=== PATIENT | male | born 1985 | race Caucasian/White ===

== ENCOUNTER 2018-03-05 19:14 | Emergency (ER) | payer MEDICAID, SELFPAY ==
[2018-03-05 19:16] VITALS: BP 124/81; PULSE 115; RESP 19; TEMP 37.2; O2SAT 97; BMI 16.7
--- NOTE | 2018-03-05 19:39 | CT_ITS ---
CT Abdomen And Pelvis W/O Contrast INDICATION: LUQ PAIN COMPARISON: None TECHNIQUE: Axial CT imaging of the abdomen and pelvis without contrast. Coronal and sagittal reformatted images. FINDINGS: Air-trapping is noted at the visualized lung bases, the diaphragm is low in position. The liver, gallbladder, spleen, adrenal glands, and pancreas demonstrate grossly unremarkable noncontrast CT appearance. The kidneys are without evidence of nephrolithiasis or hydronephrosis. The urinary bladder is decompressed, otherwise unremarkable. The bowel loops are nondistended. The appendix is not well seen. There is no evidence of free air or free fluid. The osseous structures are grossly unremarkable. CT/Abdomen/Pelvis without Cont IMPRESSION: No evidence of acute abdominal or pelvic pathology by noncontrast CT. at 2020 Reported and signed by: Rasheeda Ernst MD Electronically Signed: Rasheeda Ernst MD at 20:18 EDT Tel , Service support ,
[2018-03-05] MEDS: Ondansetron 4 MG/2 ML Vial IV (19:54)
[2018-03-05] MEDS: Ketorolac 30 MG/ML Syringe IV (19:54)
[2018-03-05] MEDS: 0.9% Normal Saline 1,000 ML 250 ML IV (19:54)
[2018-03-05 21:00] LABS: Bacteria 0 SEEN /hpf (None Seen); Mucous, Urine 0 SEEN /hpf (<or=2+); Red Blood Cells-Urine 0 SEEN /hpf (0-5); White Blood Cells 0 SEEN /hpf (0-5)
[2018-03-05 21:05] LABS: Color, Urine Yellow (Yellow); Glucose, Dipstick Normal (Normal); Ketone-Dipstick Negative (Negative); Leukocyte Esterase-Dipstick 25 /ul (Negative); Nitrite-Dipstick Negative (Negative); Occult Blood-Urine 25 /ul (Negative); Protein-Dipstick Negative (Negative); Specific Gravity, Urine 1.015 (1.002-1.030); Urine Bilirubin Dipstick Negative (Negative); Urine Clarity Sl. Cloudy (Clear); Urine Urobilinogen Normal (Normal); Urine pH 6.5 (5.0 - 8.0)
[2018-03-05 21:17] LABS: Squamous Epithelial Cells - UA 0-5 SEEN /hpf (0-5)
[2018-03-05 21:18] LABS: Amorphous Sediment 2+
--- NOTE | 2018-03-05 21:49 | ED.DCSUM_ITS ---
- ER Visit Summary Date of Service: 03/05/18 Chief Complaint: Left flank pain History of Present Illness: The patient is a 33 M with no primary care physician. He reports he has left flank pain that began abruptly at 9:00 this morning. Is a stabbing pain Zeta 10 at worst and 7 out of 10 currently. Is worsened by nothing relieved by nothing. He has had nausea without vomiting. No diarrhea. His last problem was today. He has had no melena hematochezia. No dysuria or frequency. No personal family history of kidney stones. Physical Examination: Vitals: Stable. Afebrile. General: Well-nourished and well-developed. Head: Normocephalic atraumatic. Neck: Supple, no lymphadenopathy. No JVD. Nontender. Cardiovascular: Regular rate and rhythm. No murmurs. Respiratory: No respiratory distress. Clear to auscultation bilaterally. Abdominal: Soft, nontender, nondistended, normal bowel sounds. No guarding, rebound, or peritoneal signs. Back: Nontender. Extremities: Nontender, no edema. Skin: Normal color, no rash. Neurologic: Alert and oriented ?3. Cranial nerves II through XII are intact. Normal strength and sensation. Psych: Normal affect. Test Results: UA shows occult blood. CT flank shows no acute disease. Emergency Department Course and Treatment: Patient was treated Toradol and Zofran IV. He is resting comfortably and would like to go home. Treatment Plan: She will be discharged with naproxen and [place]. Instructed to follow-up with Dr. Brunson in 1-2 days if not improving. Return to the emergency department for any worsening symptoms. Disposition: To home in improved and stable condition. Impression:. Left flank pain, uncertain cause. This note was generated with [employer] dictation software. It may contain incorrect words, spelling, and punctuation that were not noted in review of the chart prior to signing ED Disposition - Plan for ED Patient: Disposition: Home or Assisted Living Chief Complaint: Abd Pain Instructions: ED Flank Pain Uncertain Cause Prescriptions: Hydrocodone Bitart/Apap 5-325 [[place] 5MG-325MG] 1 tablet PO Q4H PRN PRN 2 Days # 10 tablet PRN Reason: Pain Naproxen [Naprosyn] 500 mg PO BID #14 tablet Referrals: Saud Brunson MD [Primary Care Provider] - 3-5 Days if not improving
[2018-03-05] MEDS: HYDROcodone Bitartrate/Apap 5/325 Tablet PO (21:59)
[2018-03-05 22:06] VITALS: BP 115/85; PULSE 75; RESP 12; O2SAT 100
== END 2018-03-05 22:06 | disposition home or self-care (01) ==
PROVIDERS: Emergency Provider Emergency Medicine; Family Provider Family Medicine; PCP Family Medicine
DX: R10.9 Unspecified abdominal pain (principal); Z72.0 Tobacco use
CPT/HCPCS: 74176; 81001; 96361; 96374; 96375; 99284; J7030; A4216; J2405

== ENCOUNTER 2018-11-17 00:50 | Emergency (ER) | payer MEDICAID, SELFPAY ==
[2018-11-17 00:51] VITALS: BP 119/81; PULSE 118; RESP 18; TEMP 36.8; O2SAT 99; BMI 17.1
--- NOTE | 2018-11-17 01:46 | RAD_ITS ---
HISTORY: FELLC/O POSTERIOR LT KNEE PAIN COMPARISON: None FINDINGS: # of images incl. paperwork: 5 XR Knee Complete 4 Views or More: Left SOFT TISSUES: Unremarkable. No radiopaque foreign body. BONES: No acute fracture or subluxation. No sclerotic or destructive changes observed. JOINTS: Preservation of the joint space. Articular surfaces are unremarkable. RAD/Knee 4 or More Views IMPRESSION: Negative. at 0224 Reported and signed by: Mateusz Madrid MD Electronically Signed: Mateusz Madrid, at 2:22 EST Tel , Service support ,
--- NOTE | 2018-11-17 02:39 | ED.DEP ---
ED Disposition - Plan for ED Patient: Instructions: ED Sprain Knee Referrals: Saud Brunson MD [Primary Care Provider] -
[2018-11-17 02:50] VITALS: PULSE 88; RESP 16; O2SAT 98
--- NOTE | 2018-11-17 03:55 | ED.VISSUMM ---
- ER Visit Summary Date of Service: 11/17/18 Chief Complaint: Left knee pain History of Present Illness: The patient is a 33 M who presents with left knee pain. It began about 10 hours ago. He was ice skating. He states he felt a snap at his left knee and then he fell. He has been able to partially weight-bear since that time but is painful. No paresthesias or weakness. Physical Examination: Heart rate 118 vitals otherwise normal No distress Patient has active full range of motion of the left lower extremity he does have tenderness over the proximal fibula there is no obvious bony deformity has active full range of motion of the knee there is no appreciable effusion he is neurovascularly intact distally with palpable pulse brisk capillary refill normal sensation light touch Test Results: Knee x-ray is negative Emergency Department Course and Treatment: History presentation and findings are consistent with an acute knee sprain. He was advised on supportive care. He declined analgesics here. He was given an Saeid wrap and crutches. He understands to return for new or worsening symptoms and was discharged home. Treatment Plan: [] Disposition: Discharge Impression: Acute left knee sprain This note was generated with [employer] dictation software. It may contain incorrect words, spelling, and punctuation that were not noted in review of the chart prior to signing ED Disposition - Plan for ED Patient: Disposition: Home or Assisted Living Instructions: ED Sprain Knee Referrals: Saud Brunson MD [Primary Care Provider] -
== END 2018-11-17 02:52 | disposition home or self-care (01) ==
PROVIDERS: Emergency Provider Emergency Medicine; Family Provider Family Medicine; PCP Family Medicine
DX: S83.92XA Sprain of unspecified site of left knee, initial encounter (principal); Z72.0 Tobacco use; W00.0XXA Fall on same level due to ice and snow, initial encounter; Y93.21 Activity, ice skating; Y92.330 Ice skating rink (indoor) (outdoor) as the place of occurrence of the external cause; Y99.8 Other external cause status
CPT/HCPCS: 73564; 99283

== ENCOUNTER 2023-10-11 09:08 | Emergency (ER) | payer OTHER, SELFPAY ==
[2023-10-11 09:08] VITALS: BP 145/95; PULSE 101; RESP 13; O2SAT 99
[2023-10-11 09:09] VITALS: BP 145/95; PULSE 102; RESP 18; TEMP 36.6; O2SAT 97; BMI 22.8
--- NOTE | 2023-10-11 09:21 | EDS_ITS ---
HPI History of Present Illness Chief Complaint: Dizziness Detail of Chief Complaint: Lightheaded. Informant: patient Onset/Context/Timing Onset: Today Context: Sudden Onset Timing: Continuous Current Severity: Moderate Maximum Severity: Moderate Narrative Narrative: 38-year-old male no segment past medical history. Only prior surgery was for an appendectomy. Currently on no medications. State of Patient states he was in his normal state of health until this morning when he had lightheadedness that he describes as dizziness. No room spinning. No headache. No shortness of breath. No vomiting or diarrhea. No recent fever. No cough. Was driving at the time. Said he then became anxious. Pulled over and called the squad. No prior history. Prior similar symptoms: No Recent Illness/Hospitalization: No PFSH PFSH Medical History no medical history no medical history Home Medications esomeprazole magnesium 40 mg capsule,delayed release (Nexium) 40 mg PO DAILY 02/04/17 [History Last Taken Unknown] cholecalciferol (vitamin D3) 25 mcg (1,000 unit) chewable tablet (Vitamin D3) 1,000 unit PO DAILY 03/05/18 [History Last Taken Unknown] hydrocodone-acetaminophen 5-325mg 5mg-325mg 1 tab PO Q4H PRN PRN Pain 2 days ##10 03/05/18 [Rx Last Taken Unknown] naproxen 500 mg tablet 500 mg PO BID #14 tabs 03/05/18 [Rx Last Taken Unknown] Allergy/AdvReac Type Severity Reaction Status Date / Time No Known Allergies Allergy Verified 11/17/18 00:54 Family History no significant family his Surgical History History of appendectomy Social History household members: spouse Smoking Status: Current every day smoker tobacco type: cigarettes ROS ROS ED ROS Narrative Dizziness described as lightheadedness. Review of Systems ROS Unobtainable: Denies due to encephalopathy Constitutional Constitutional ED: Denies chills or fever(s) Eyes Eyes: Denies blurry vision ENT ENT ED: Denies ear pain Cardiovascular Cardiovascular: Denies chest pain Respiratory/Chest Respiratory/Chest: Denies cough or dyspnea Gastrointestinal Gastrointestinal: Denies abdominal pain, constipation, diarrhea, melena, nausea or vomiting Genitourinary Genitourinary ED: Denies dysuria or hematuria Musculoskeletal Musculoskeletal: Denies arthralgias, back pain, myalgias or neck pain Integumentary Denies abscess or Abrasions Neurologic Neurologic: Denies headache(s) Psychiatric Psychiatric: Reports anxiety Endocrine Endocrinology: Denies cold intolerance Hematologic/Lymphatic Hematologic/Lymphatic: Reports none Allergic/Immunologic Allergic/Immunologic ED: Denies mouth swelling, tongue swelling or urticaria EXAM Physical Exam Narrative Exam Narrative: Well-appearing 38-year-old male. Vital signs are stable afebrile. Pulse ox 99% on room air no hypoxia. H EENT exam unremarkable. Neck nontender no lymphadenopathy. Lungs clear to auscultation bilaterally. Heart regular rhythm no murmur rate about 110. Chest wall and ribs nontender. Abdomen soft nontender. Back nontender. Skin no rashes. Moving all 4 extremities. 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 Dorsi plantarflexion intact. Neurologically is awake and alert. Answering questions and following commands. Normal motor strength. Fingertip to nose and [id number] within normal limits bilaterally. NIH score 0. Const Vital Signs: 10/11/23 09:08 10/11/23 09:09 10/11/23 09:17 Temperature 98 F Temperature Source Temporal Pulse Rate 101 H 102 H Respiratory Rate 13 18 Respiratory Effort Normal Respiratory Pattern Normal Blood Pressure 145/95 H 145/95 H Blood Pressure Mean 111 111 Pulse Ox 99 97 Oxygen Delivery Method Room Air Room Air Positive well nourished and well developed; Negative for obese, cachectic, contractures or unkempt General Appearance ED: well developed and NAD; Negative for unkempt, cachectic, contractures, cyanotic, diaphoretic or pallor Nutritional Appearance: Negative for cachectic or obese HEENT Reports moist mucous membranes; Denies dry mucous membranes or other Negative for trauma, tenderness or other Mouth ED: No dry mucous membranes Mouth: No dry mucous membranes Eyes PERRL and EOMs intact bilaterally General Eye ED: Negative for pale conjunctiva, scleral icterus or other Neck no lymphadenopathy, supple and no JVD General: Negative for tenderness Lymph Lymphatic: Negative for other Chest Wall inspection of chest normal and palpation of chest normal Chest: Negative for other Resp normal respiratory effort and clear to auscultation bilaterally Effort and Inspection: Negative for retractions Auscultation: Negative for rales, rhonchi or wheezes Cardio regular rhythm, S1 normal heart sound, S2 normal heart sound and no murmurs; Negative for regular rate Rate: tachycardic Rhythm: Negative for abnormal rhythm GI normal to inspection, nondistended, normoactive bowel sounds, non-tender, non- distended and no masses Inspection: Negative for abdominal distention Auscultation: normoactive bowel sounds Palpation: soft; Negative for tender or guarding Back/Spine no CVA tenderness General Back: Negative for CVA tenderness or other Cervical Spine: Negative for cervical spine tenderness Thoracic Spine / Upper Back: Negative for thoracic spinal tenderness Lumbar Spine / Lower Back: Negative for lumbar spinal tenderness Extremity normal to inspection General Extremety ED: Negative for edema or tenderness General Extremity: Negative for edema Neuro oriented x3, CN's II-XII intact bilaterally and no sensory deficits noted Sensorium / Orientation: alert; Negative for orientation impaired, lethargic or stuporous Motor Exam: strength 5/5 throughout Psych mental status grossly normal Appearance: Negative for unkempt or other Attitude: No agitated Mood & Affect: Negative for depressed, anxious or tearful Skin no rashes or lesions noted, no wounds and skin turgor normal General Skin Exam: elasticity normal; Negative for jaundice or pallor Lesions: No lesion noted Rashes: No rashes noted Trauma: Negative for abrasion Wounds: Negative for wounds noted MDM MDM MDM Narrative Medical decision making narrative: Well-appearing 38-year-old male with dizziness and lightheadedness. Exam benign other than mild tachycardia. Neurologic exam completely normal. Screening labs and EKG being obtained. No signs of acute neurologic event. I do not think he needs any imaging of his brain. Repeat exam at 11:30 AM patient doing well. Exam benign and unchanged. We discussed his test results. To be discharged home. History & Record Review Discussion w/independent historian: Patient Additional record(s) reviewed:: Prior inpatient record, Prior outpatient record, Prior ED visit and Prior labs Lab Data Attestation: I reviewed the patient's lab results. Lab results narrative: BMP unremarkable gap of 4. Normal BUN of 12 creatinine 1. Glucose 118. CBC shows a white count of 7. H&H of 17 and 48. Platelet count of 290. Labs: Laboratory Results - last 24 hr 10/11/23 09:11 WBC 7.4 RBC 5.47 Hgb 17.0 H Hct 48.9 MCV 89.4 MCH 31.1 MCHC 34.8 RDW Std Deviation 39.5 RDW Coeff of Melanie 12.1 Plt Count 290 MPV 9.5 Immature Gran % (Auto) 0.500 Neut % (Auto) 56.4 Lymph % (Auto) 33.1 [place] % (Auto) 7.8 Eos % (Auto) 1.5 Baso % (Auto) 0.7 Absolute Neuts (auto) 4.2 Absolute Lymphs (auto) 2.43 Nucleated RBC % 0 Sodium 139 Potassium 3.5 Chloride 107 Carbon Dioxide 28.0 Anion Gap 4 L BUN 12 Creatinine 1.05 Estim Creat Clear Calc 101.19 Est GFR (MDRD) Af Amer 100 Est GFR (MDRD) Non-Af 83 BUN/Creatinine Ratio 11.4 Glucose 118 H Calcium 9.7 Rhythm Strip Rhythm Strip: Sinus Rhythm Rate: 96 Ectopy: None EKG Initial EKG: Attestation: I personally reviewed and interpreted this EKG as follows: Interpretation: Sinus Rhythm and No Acute Injury Pattern Comments: Normal sinus rhythm rate of 96 no acute signs of ME or ischemia. No change from prior EKG from February 2017. Prior EKG tracings: available for review Prior: Unchanged Discharge Plan Triage Chief Complaint: Dizziness ED Provider: Jonnie Witt Dx/Rx/DC Orders Clinical Impression: Dizziness, Anxiety Instructions: ED Dizziness, Uncertain Cause Prescriptions: No Action esomeprazole magnesium [Nexium] 40 MG capsule 40 mg PO DAILY cholecalciferol (vitamin D3) [Vitamin D3] 1,000 UNIT tablet,chewable 1,000 unit PO DAILY hydrocodone-acetaminophen 1 TABLET tablet 1 tab PO Q4H PRN PRN (Reason: Pain) 2 Days Qty: 10 0RF naproxen 500 MG tablet 500 mg PO BID Qty: 14 0RF Primary Care Provider: Saud Brunson Referrals: Saud Brunson MD [Primary Care Provider] - 3-5 Days if not improving Activity Restrictions/Additional Instructions: Exam, labs and EKG unremarkable. Follow-up with your doctor if not improving. Disposition Disposition: Home, Self Care
[2023-10-11 09:36] LABS: Absolute Lymphocyte Count 2.43 X10^3/uL (0.83-4.51); Absolute Neutrophil Count 4.2 X10^3/uL (2.0-7.7); Basophil# 0.05 X10^3/uL; Basophil% 0.7 % (0-1); Eosinophil# 0.11 X10^3/uL; Eosinophils% 1.5 % (0-5); Hematocrit 48.9 % (40-54); Lymphocyte # 2.43 X10^3/ul (0.83-4.51); Lymphocyte % 33.1 % (19-41); Mean Corp Hgb Conc 34.8 g/dL (32-36); Mean Corpuscular Hgb 31.1 pg (27.0-32.0); Mean Corpuscular Volume 89.4 fL (80-94); Mean Platelet Vol. 9.5 fl (6.2-12.0); Monocyte# 0.57 X10^3/uL; Monocyte% 7.8 % (0-10); NRBC Flagged by Analyzer 0 % (0-5); Neutrophil # 4.15 X10^3/uL (2.7-7.7); Neutrophil % 56.4 % (47-70); Platelet Count 290 K/mm3 (150-450); RBC Distribution Width CV 12.1 % (11.6-14.6); RBC Distribution Width SD 39.5 fl (35.1-43.9); Red Blood Count 5.47 M/mm3 (4.6-6.2); White Blood Count 7.4 K/mm3 (4.4-11.0)
[2023-10-11 09:40] LABS: Anion Gap 4 (5-15); BUN 12 mg/dL (7-18); BUN/Creat Ratio 11.4 RATIO (10-20); Calcium,Total 9.7 mg/dL (8.5-10.1); Chloride 107 mmol/L (98-107); Creatinine, Serum 1.05 mg/dL (0.70-1.30); EST Glomerular Filtration Rate 83 mL/min (>60); Est Glom Filt Rate - Afr Amer 100 mL/min (>60); Estimated Creatinine Clearance 101.19 ml/min; Glucose 118 mg/dL (74-106); Potassium 3.5 mmol/L (3.5-5.1); Sodium Level 139 mmol/L (136-145)
--- OUTSIDE RECORDS SUMMARY | 2023-10-11 10:20 | XMS RPT_ITS | CCD ---
Author Name Unknown Address [facility] [employer] [facility] [address] [place] [address] Organization [facility] Care Team Providers Care Fancy Stitcher Name Role Phone Leti Angulo Unavailable KISHORE Malhotra, Deanna Packer Unavailable Unavailjennifer Malhotra RN, Deanna Packer Unavailable UnavailLeti Florez Unavailable Gwendolyn Vásquez RN Unavailable Unavailable Aisha Baires MD Primary Care Provider [phone] Aisha Baires MD Primary Care Provider [phone] AISHA BAIRES Primary Care Unavailable PODLOGARLISA Referring Unavailable AISHA BAIRES Primary Care Unavailable PODLOGARLISA Attending Unavailable Medications Current Medications Medication Drug Class(es) Dates Sig (Normalized) Sig (Original) amoxicillin 875 mg / clavulanate 125 mg oral tablet (1 source) Penicillin-class Antibacterial Start: 01-05-2022 End: 01-15-2022 take 1 tablet by mouth twice daily amoxicillin-clav ulanic acid (AUGMENTIN) 875-125 mg per tablet Indications: Pain, dental Take 1 tablet by mouth twice daily for 10 days. 20 tablet 0 01/05/2022 01/15/2022 Active Completed/Discontinued Medications Medication Drug Class(es) Dates Sig (Normalized) Sig (Original) albuterol 0.83 mg/ml inhalation solution (2 sources) beta2-Adrenergic Agonist Start: 11-21-2022 take 2.5 mg by inhalation every four hours as needed for dyspnea and cough and dyspnea and cough albuterol (PROVENTIL) 2.5 mg /3 mL (0.083 %) nebulizer solution Indications: SOB (shortness of breath) , Acute cough Use 3 mL via nebulizer every 4 hours as needed for wheezing/shortnes s of breath. Use over 5-15minutes. 540 mL 0 11/21/2022 Active Problems Active Problems Problem Classification Problem Date Documented Date Episodic/Chronic Adjustment disorders (3 sources) Reactive depression (situational); Translations: [Adjustment disorder with depressed mood] Onset: 10-23-2019 10-23-2019 Chronic Disorders of teeth and jaw (1 source) Toothache; Translations: [Other specified disorders of teeth and supporting structures] Episodic Esophageal disorders (3 sources) Gastroesophageal reflux disease without esophagitis; Translations: [Gastro-esophageal reflux disease without esophagitis] Onset: 11-24-2015 11-24-2015 Chronic Malaise and fatigue (1 source) Fatigue; Translations: [Other fatigue] Episodic Nutritional deficiencies (3 sources) Vitamin D deficiency; Translations: [Vitamin D deficiency, unspecified] Onset: 06-04-2014 06-04-2014 Chronic Other lower respiratory disease (1 source) Dyspnea; Translations: [Shortness of breath] Episodic Other lower respiratory disease (1 source) Cough; Translations: [Acute cough] Episodic Other lower respiratory disease (1 source) Wheezing; Translations: [Wheezing] Episodic Other lower respiratory disease (1 source) Rib pain; Translations: [Pleurodynia] Episodic Other lower respiratory disease (1 source) Shortness of breath; Translations: [SOB (shortness of breath)] Onset: 11-21-2022 Episodic Other lower respiratory disease (1 source) Pleurodynia; Translations: [Rib pain on left side] Onset: 11-21-2022 Episodic Other lower respiratory disease (1 source) Wheezing; Translations: [Wheezing] Onset: 11-21-2022 Episodic Other male genital disorders (1 source) Secondary erectile dysfunction; Translations: [Male erectile dysfunction, unspecified] Chronic Screening or history of mental health and substance abuse (5 sources) Nicotine dependence; Translations: [Nicotine dependence, unspecified, uncomplicated] Onset: 02-12-2017 02-12-2017 Chronic Substance-related disorders (4 sources) Smoker; Translations: [Nicotine dependence, unspecified, uncomplicated] Onset: 08-16-2014 10-02-2021 Chronic Unclassified (1 source) Acute cough; Translations: [Acute cough] Onset: 11-21-2022 Past or Other Problems Problem Classification Problem Date Documented Da te Episodic/Chronic Abdominal pain (6 sources) Suprapubic pain; Translations: [Pelvic and perineal pain] Onset: 11-24-2015 11-24-2015 Episodic Cardiac dysrhythmias (10 sources) Tachycardia; Translations: [Palpitations] Onset: 02-12-2017 02-12-2017 Episodic Genitourinary symptoms and ill-defined conditions (6 sources) Abnormal composition of urine; Translations: [Unspecified abnormal findings in urine] Onset: 11-24-2015 11-24-2015 Episodic Nonspecific chest pain (5 sources) Chest pain; Translations: [Chest pain, unspecified] Onset: 02-12-2017 02-12-2017 Episodic Results Test Name Value Interpretation Reference Range Facil ity Vital Signs Date Time Vital Sign Value Performing Clinician Facility 11-21-2022 12:11-0500 Body temperature 99 [degF] Lisa Podlogar PRESS OFFICER.WAREHOUSE TECHNICIAN Work Phone: [facility] 11-21-2022 12:11-0500 Body weight 70.94 kg Lisa Podlogar PRESS OFFICER.WAREHOUSE TECHNICIAN Work Phone: [facility] 11-21-2022 12:11-0500 Diastolic blood pressure 82 mm[Hg] Lisa Podlogar PRESS OFFICER.WAREHOUSE TECHNICIAN Work Phone: [facility] 11-21-2022 12:11-0500 Heart rate 110 /min Lisa Podlogar PRESS OFFICER.WAREHOUSE TECHNICIAN Work Phone: [facility] 11-21-2022 12:11-0500 Respiratory rate 20 /min Lisa Podlogar PRESS OFFICER.WAREHOUSE TECHNICIAN Work Phone: [facility] 11-21-2022 12:11-0500 SaO2% (BldA) [Mass fraction] 94 % Lisa Podlogar PRESS OFFICER.WAREHOUSE TECHNICIAN Work Phone: [facility] 11-21-2022 12:11-0500 Systolic blood pressure 124 mm[Hg] Lisa Podlogar PRESS OFFICER.WAREHOUSE TECHNICIAN Work Phone: [facility] 01-05-2022 12:09-0400 Body height 180.3 cm Fox Kern PRESS OFFICER.WAREHOUSE TECHNICIAN Work Phone: [facility] 01-05-2022 12:09-0400 Body temperature 97.39 [degF] Fox Erlin PRESS OFFICER.WAREHOUSE TECHNICIAN Work Phone: [facility] 01-05-2022 12:09-0400 Body weight 72.12 kg Fox Erlin PRESS OFFICER.WAREHOUSE TECHNICIAN Work Phone: [facility] 01-05-2022 12:09-0400 Diastolic blood pressure 80 mm[Hg] Fox Erlin PRESS OFFICER.WAREHOUSE TECHNICIAN Work Phone: [facility] 01-05-2022 12:09-0400 Heart rate 84 /min Fox Erlin PRESS OFFICER.WAREHOUSE TECHNICIAN Work Phone: [facility] 01-05-2022 12:09-0400 Respiratory rate 14 /min Fox Erlin PRESS OFFICER.WAREHOUSE TECHNICIAN Work Phone: [facility] 01-05-2022 12:09-0400 Systolic blood pressure 124 mm[Hg] Fox Erlin PRESS OFFICER.WAREHOUSE TECHNICIAN Work Phone: [facility] 02-13-2017 13:43-0400 BMI (Body Mass Index) 17.9 kg/m2 Leti Angulo [facility] Work Phone: 02-13-2017 13:43-0400 Body weight 59.88 kg Gwendolyn Vásquez RN [facility] Work Phone: 02-13-2017 13:43-0400 BP Diastolic 70 mm[Hg] Leti Angulo [facility] Work Phone: 02-13-2017 13:43-0400 BP Systolic 110 mm[Hg] Leti Angulo [facility] Work Phone: 02-13-2017 13:43-0400 Height 182.88 cm Leti Angulo [facility] Work Phone: 02-13-2017 13:43-0400 Pulse (Heart Rate) 120 /min Leti Angulo [facility] Work Phone: 02-13-2017 13:43-0400 Respiratory Rate 20 /min [facility] Work Phone: 02-13-2017 13:43-0400 Weight 59.88 kg [facility] Work Phone: Encounters Encounter Date Encounter Type Care Provider Facility Start: 11-21-2022 End: 11-22-2022 roger BAIRES Facility:[facility] Start: 11-21-2022 End: 11-21-2022 Patient encounter procedure Lisa Gallegojohn PRESS OFFICER.WAREHOUSE TECHNICIAN Work Phone: [facility] Procedures Date Procedure Procedure Detail Performing Clinician Start: 02-26-2017 End: 03-07-2017 Echocardiography Jairo Hammonds MD Start: 02-13-2017 End: 02-13-2017 Documentation of current medications Gwendolyn Vásquez RN Start: 02-13-2017 End: 02-13-2017 Smoking cessation education Gwendolyn Vásquez RN Plan of Treatment Date Care Activity Detail Author Start: 05-17-2026 LIPID SCREEN LIPID SCREEN [facility] Start: 03-27-2023 Urine microalbumin profile DTAP,TDAP,TD (7 - Td or Tdap) [facility] Start: 06-07-2022 Influenza vaccination [facility] Start: 01-05-2022 End: 03-07-2022 CBC W Auto Differential panel - Blood CBC + DIFF Lab Routine Fatigue, unspecified type Expected: 01/05/2022, Expires: 03/07/2022 [facility] Work Phone: Immunizations Immunization Date Immunization Notes Care Provider Fa ciliradha 03-27-2013 pneumococcal polysaccharide vaccine, 23 valent Aisha Baires MD Work Phone: [facility] Work Phone: 03-27-2013 tetanus toxoid, redu gus diphtheria toxoid, and acellular pertussis vaccine, adsorbed Aisha Baires MD Work Phone: [facility] Work Phone: 05-19-1996 measles, mumps and rubella virus vaccine Aisha Baires MD Work Phone: [facility] Work Phone: 08-02-1993 DTP-Haemophilus influenzae type b conjugate vaccine Aisha Baires MD Work Phone: [facility] Work Phone: 03-09-1988 DTP-Haemophilus influenzae type b conjugate vaccine Aisha Baires MD Work Phone: [facility] Work Phone: 03-09-1988 haemophilus influenz ae type b vaccine, conjugate unspecified formulation Aisha Baires MD Work Phone: [facility] Work Phone: 03-09-1988 trivalent poliovirus vaccine, live, oral Aisha Baires MD Work Phone: [facility] Work Phone: 06-05-1986 haemophilus influenz ae type b vaccine, conjugate unspecified formulation Aisha Baires MD Work Phone: [facility] Work Phone: 01-28-1985 DTP-Haemophilus influenzae type b conjugate vaccine Aisha Baires MD Work Phone: [facility] Work Phone: 01-28-1985 trivalent poliovirus vaccine, live, oral Aisha Baires MD Work Phone: [facility] Work Phone: 07-09-1984 measles, mumps and rubella virus vaccine Aisha Baires MD Work Phone: [facility] Work Phone: 1985 DTP-Haemophilus influenzae type b conjugate vaccine Aisha Baires MD Work Phone: [facility] Work Phone: 1985 trivalent poliovirus vaccine, live, oral Aisha Baires MD Work Phone: [facility] Work Phone: 1985 DTP-Haemophilus influenzae type b conjugate vaccine Aisha Baires MD Work Phone: [facility] Work Phone: 1985 trivalent poliovirus vaccine, live, oral Aisha Baires MD Work Phone: [facility] Work Phone: Payers Date Payer Category Payer Medicaid [facility] [employer] [id number] 2022-Present [phone] [address] [place] [address] Medicaid [id number] 2022 Medicaid [id number] 2017 Medicaid [employer] [id number] 2017-Present [phone] [address] [place] [address] Medicaid [id number] Social History Date Type Detail Facility Start: 06-04-2014 End: 11-21-2022 Tobacco smoking status WVIS Smokes tobacco daily [facility] History of tobacco use Cigarette Smoker [facility] Start: 06-04-2014 End: 11-21-2022 Cigarettes smoked current (pack per day) - Reported 1 [facility] Start: 06-04-2014 End: 11-21-2022 Tobacco use and exposure Smokeless tobacco non-user [facility] Start: 11-29-2021 End: 11-21-2022 Alcohol intake Current non-drinker of alcohol (finding) [facility] Start: 10-01-2021 End: 11-20-2022 History SDOH Alcohol Frequency 3 [facility] Start: 10-01-2021 End: 11-20-2022 History SDOH Alcohol Std Drinks 1 [facility] Start: 10-01-2021 End: 11-20-2022 History SDOH Social Connections Phone 5 [facility] Start: 10-01-2021 End: 11-20-2022 History SDOH Social Connections Get Together 2 [facility] Start: 10-16-2019 Education 21 [facility] Start: 1985 Sex Assigned At Male [facility] Start: 10-30-2021 End: 11-29-2021 Exposure to SARS-CoV-2 (event) Not sure [facility] Start: 11-20-2022 History SDOH Alcohol Frequency 4 [facility] Start: 11-20-2022 History SDOH Physica l Activity DPW 0 [facility] Start: 11-20-2022 History SDOH Food Worry 98 [facility] Start: 11-21-2022 Tobacco Comment nov 2005 [facility] Clinical Notes 09-23-2007 to 11-21-2022 Lisa Kim APRN.PHYLLIS - 11/21/2022 12:13 PM Reg Kern APRN.CNP - 01/05/2022 12:20 PM EDTPatient InstructionsTelephone Encounter - Jihan Olivera LPN - 12/29/2021 12:20 PM EDT Note Date & Type Note Facility 11-21-2022 Note HNO ID: [id number] Author: RT Nikky(R) Service: ? Author Type: Steel Melter Type: Progress Notes Filed: 11/21/2022 12:52 PM Note Text: Radiology Service Progress Note PATIENT NAME: Jay Jay Mosquera DATE OF SERVICE: November 21, 2022 TIME: 12:35 PM PATIENT IDENTITY VERIFICATION COMPLETED USING TWO (2) IDENTIFIERS: Name and Date of confirmed by patient verbally. FALL SCREENING: Has the patient had 2 falls in the last year or 1 fall with injury or currently using an Ambulatory Assistive Device (Walker, Cane, Wheelchair, Crutches, etc.)? No PATIENT GENDER DATA: Male PATIENT RELEVANT IMPLANT DATA REVIEWED: Yes RADIOLOGY DEPARTMENT: General X-ray: Exam(s) Completed: Chest X-Ray Rib X-Ray: Left PERIPHERAL IV DATA: Not applicable SIGNED BY: RT Nikky(R) November 21, 2022 12:[address] [facility] 11-21-2022 Note HNO ID: [id number] Author: Lisa Kim APRN.WAREHOUSE TECHNICIAN Service: ? Author Type: Nurse Practitioner Type: Progress Notes Filed: 11/21/2022 12:46 PM Note Text: 11/21/2022 Patient presents with: Cough: AND Congestion x3 weeks with productive cough. Left side ribs painful from coughing. SUBJECTIVE: This is a 37 year old that is here today for Above Complaints.. About three weeks ago started with low grade fevers (99.). Having a lot of head and chest congestion. Feels SOB when moving around. Has used tylenol sinus, old inhaler and a family members nebulizer which seemed to help. Reports his left ribs hurt from coughing so much. Was smoking 2 ppd a day prior to feeling ill and is now down to 1 ppd. Admits to wheezing. Denies recent fevers, chills, sinus pain,er pain, loss of taste/smell, dyspnea, orthopnea, chest pain, palpitations, nausea, vomiting or diarrhea PAST MEDICAL HISTORY Diagnosis Date GERD (gastroesophageal reflux disease) 03/27/2013 Smoker 08/16/2014 Started at age 15 up to 1/2 PPD Varicocele Vitamin D deficiency 06/04/2014 ALLERGIES Patient has no known allergies. MEDICATIONS Current Outpatient Medications Medication Sig varenicline (CHANTIX) 1 mg tablet Take 0.5 tablets by mouth once daily for 3 days, THEN 0.5 tablets twice daily for 4 days, THEN 1 tablet twice daily for 23 days. varenicline (CHANTIX) 1 mg tablet Take 1 tablet by mouth twice daily. No current facility-administered medications for this visit. Medications and allergies reviewed by this provider. SOCIAL HISTORY Social History Tobacco Use Smoking status: Every Day Packs/day: 1.00 Years: 15.00 Pack years: 15.00 Types: Cigarettes Smokeless tobacco: Never Tobacco comments: nov 2005 Vaping Use Vaping Use: Never used Substance Use Topics Alcohol use: No Drug use: No REVIEW OF SYSTEMS All other reviewed and negative other than HPI. OBJECTIVE: BP 124/82 Pulse 110 Temp 37.2 ?C (99 ?F) Resp 20 Wt 70.9 kg (156 lb 6.4 oz) SpO2 94% BMI 21.81 kg/m? . Vital signs reviewed by this provider. APPEARANCE Well appearing, alert, in no acute distress, well-hydrated, well nourished. EYES conjunctiva and sclera normal. EARS External ears normal, canals clear NOSE/SINUS No drainage or sinus tenderness. NECK Supple, no adenopathy; HEART RR with normal S1 and S2, no murmurs, no gallops, no JVD appreciated and Rate tachycardia CHEST WALL: TTP left lateral ribs. No obvious deformity or skin changes observed. LUNG scattered rhonchi and expiratory wheezing posteriorly throughout. No rales. Able to speak in full sentences without difficulty SKIN Skin color, texture, turgor normal, no suspicious rashes or lesions to exposed skin HEPATITIS B(1 of 3 - 3-dose series) Never done COVID-19 VACCINE(1) Never done PNEUMOCOCCAL(2 - PCV) due on 03/27/2014 INFLUENZA(1) Never done DTAP,TDAP,TD(7 - Td or Tdap) due on 03/27/2023 LIPID SCREEN due on 05/17/2026 HEPATITIS C SCREENING Completed HIV SCREENING Completed ASSESSMENT/PLAN: 1. Acute cough - ICD9: 786.2, ICD10: R05.1 (primary diagnosis) - no red flag symptoms or exam findings - red flag symptoms discussed, verbalizes understanding - XR CHEST 2V FRONTAL/LAT - NEBULIZERS - ALBUTEROL SULFATE 2.5 MG/3 ML (0.083 %) SOLUTION FOR NEBULIZATION - PREDNISONE 20 MG TABLET - take mucinex OTC - recommend smoking cessation - follow-up pending xray to ER with red flag symptoms 2. SOB (shortness of breath) - ICD9: 786.05, ICD10: R06.02 - consider pneumonia vs related to his smoking - no red flag symptoms or exam findings - red flag symptoms discussed, verbalizes understanding - XR CHEST 2V FRONTAL/LAT - NEBULIZERS - ALBUTEROL SULFATE 2.5 MG/3 ML (0.083 %) SOLUTION FOR NEBULIZATION - PREDNISONE 20 MG TABLET - if xray normal and persists would initiate pulm work up with spirometry, to ER with red flag symptoms 3. Wheezing - ICD9: 786.07, ICD10: R06.2 - plan as above XR CHEST 2V FRONTAL/LAT - NEBULIZERS - ALBUTEROL SULFATE 2.5 MG/3 ML (0.083 %) SOLUTION FOR NEBULIZATION - PREDNISONE 20 MG TABLET 4. Rib pain on left side - ICD9: 786.50, ICD10: R07.81 - consider rib fracture from coughing - continue to cough and deep breath - may use OTC pain relievers as directed on packaging - may apply heat for 15 minutes at a time - XR RIBS 2V AP/OBL LEFT - follow-up pending xray Lisa Podlogar, PRESS OFFICER.WAREHOUSE TECHNICIAN Prescription instructions reviewed with patient as applicable. Patient advised if symptoms do not improve or if symptoms worsen sooner, to contact their primary care physician. Potential red flag symptoms discussed with the patient. Reviewed appropriate action plan to take if red flag symptoms occur. Patient agreeable to treatment plan. I spent a total of 30 minutes on the date of the service which included preparing to see the patient, [id number] patient care, completing clinical documentation, obtaining and/ (more content not included)... [facility] 11-21-2022 History of Presen t illness Narrative 11/21/2022 Patient presents with: Cough: & Congestion x3 weeks with productive cough. Left side ribs painful from coughing. SUBJECTIVE: This is a 37 year old that is here today for Above Complaints.. About three weeks ago started with low grade fevers (99.). Having a lot of head and chest congestion. Feels SOB when moving around. Has used tylenol sinus, old inhaler and a family members nebulizer which seemed to help. Reports his left ribs hurt from coughing so much. Was smoking 2 ppd a day prior to feeling ill and is now down to 1 ppd. Admits to wheezing. Denies recent fevers, chills, sinus pain,er pain, loss of taste/smell, dyspnea, orthopnea, chest pain, palpitations, nausea, vomiting or diarrhea PAST MEDICAL HISTORY Diagnosis Date GERD (gastroesophageal reflux disease) 03/27/2013 Smoker 08/16/2014 Started at age 15 up to 1/2 PPD Varicocele Vitamin D deficiency 06/04/2014 ALLERGIES Patient has no known allergies. MEDICATIONS Current Outpatient Medications Medication Sig varenicline (CHANTIX) 1 mg tablet Take 0.5 tablets by mouth once daily for 3 days, THEN 0.5 tablets twice daily for 4 days, THEN 1 tablet twice daily for 23 days. varenicline (CHANTIX) 1 mg tablet Take 1 tablet by mouth twice daily. No current facility-administered medications for this visit. Medications and allergies reviewed by this provider. SOCIAL HISTORY Social History Tobacco Use Smoking status: Every Day Packs/day: 1.00 Years: 15.00 Pack years: 15.00 Types: Cigarettes Smokeless tobacco: Never Tobacco comments: nov 2005 Vaping Use Vaping Use: Never used Substance Use Topics Alcohol use: No Drug use: No REVIEW OF SYSTEMS All other reviewed and negative other than HPI. OBJECTIVE: BP 124/82 Pulse 110 Temp 37.2 C (99 F) Resp 20 Wt 70.9 kg (156 lb 6.4 oz) SpO2 94% BMI 21.81 kg/m . Vital signs reviewed by this provider. APPEARANCE Well appearing, alert, in no acute distress, well-hydrated, well nourished. EYES conjunctiva and sclera normal. EARS External ears normal, canals clear NOSE/SINUS No drainage or sinus tenderness. NECK Supple, no adenopathy; HEART RR with normal S1 and S2, no murmurs, no gallops, no JVD appreciated and Rate tachycardia CHEST WALL: TTP left lateral ribs. No obvious deformity or skin changes observed. LUNG scattered rhonchi and expiratory wheezing posteriorly throughout. No rales. Able to speak in full sentences without difficulty SKIN Skin color, texture, turgor normal, no suspicious rashes or lesions to exposed skin HEPATITIS B(1 of 3 - 3-dose series) Never done COVID-19 VACCINE(1) Never done PNEUMOCOCCAL(2 - PCV) due on 03/27/2014 INFLUENZA(1) Never done DTAP,TDAP,TD(7 - Td or Tdap) due on 03/27/2023 LIPID SCREEN due on 05/17/2026 HEPATITIS C SCREENING Completed HIV SCREENING Completed ASSESSMENT/PLAN: 1. Acute cough - ICD9: 786.2, ICD10: R05.1 (primary diagnosis) - no red flag symptoms or exam findings - red flag symptoms discussed, verbalizes understanding - XR CHEST 2V FRONTAL/LAT - NEBULIZERS - ALBUTEROL SULFATE 2.5 MG/3 ML (0.083 %) SOLUTION FOR NEBULIZATION - PREDNISONE 20 MG TABLET - take mucinex OTC - recommend smoking cessation - follow-up pending xray to ER with red flag symptoms 2. SOB (shortness of breath) - ICD9: 786.05, ICD10: R06.02 - consider pneumonia vs related to his smoking - no red flag symptoms or exam findings - red flag symptoms discussed, verbalizes understanding - XR CHEST 2V FRONTAL/LAT - NEBULIZERS - ALBUTEROL SULFATE 2.5 MG/3 ML (0.083 %) SOLUTION FOR NEBULIZATION - PREDNISONE 20 MG TABLET - if xray normal and persists would initiate pulm work up with spirometry, to ER with red flag symptoms 3. Wheezing - ICD9: 786.07, ICD10: R06.2 - plan as above XR CHEST 2V FRONTAL/LAT - NEBULIZERS - ALBUTEROL SULFATE 2.5 MG/3 ML (0.083 %) SOLUTION FOR NEBULIZATION - PREDNISONE 20 MG TABLET 4. Rib pain on left side - ICD9: 786.50, ICD10: R07.81 - consider rib fracture from coughing - continue to cough and deep breath - may use OTC pain relievers as directed on packaging - may apply heat for 15 minutes at a time - XR RIBS 2V AP/OBL LEFT - follow-up pending xray Lisa Kim APRN.PHYLLIS Prescription instructions reviewed with patient as applicable. Patient advised if symptoms do not improve or if symptoms worsen sooner, to contact their primary care physician. Potential red flag symptoms discussed with the patient. Reviewed appropriate action plan to take if red flag symptoms occur. Patient agreeable to treatment plan. I spent a total of 30 minutes on the date of the service which included preparing to see the patient, [id number] patient care, completing clinical documentation, obtaining and/or reviewing separately obtained history, performing a medically appropriate examination, counseling and educating the patient/family/caregiver, and ordering medications, tests, or procedures. documented in this encounter [facility] 01-05-2022 History of Presen t illness Narrative Chief Complaint Patient presents with: Physical HPI Jay Jay Mosquera is a 37 year old male who presents here today for Chronic Medical Conditions.. His cholesterol panel and diabetes screening is up to date. He is at a healthy weight. Requesting blood work. History of vitamin D deficiency. Patient here for multiple reasons. Requesting a testosterone level to be drawn. Reason is that he has noticed hair loss, irritability, fatigue. Also some ongoing problems with ED, achieving. Requesting assistance with smoking cessation. Has tried Wellbutrin SR in the past, but did not curb his cravings, also did not like the side effects. At this point, smoking 1.5 packs per day. Would like his blood pressure checked. It is normal today. Has a tooth abscess in this upper left jaw. Had to cancel an appointment with dentist, now has appointment in February. It is painful. Declining COVID-19 vaccine. Past medical history, appointments, medications, allergies reviewed. Previous Medical History PAST MEDICAL HISTORY Diagnosis Date GERD (gastroesophageal reflux disease) 03/27/2013 Smoker 08/16/2014 Started at age 15 up to 1/2 PPD Varicocele Vitamin D deficiency 06/04/2014 Previous Surgical History PAST SURGICAL HISTORY Procedure Laterality Date 2D ECHO (EXEP) 03/05/2017 EF=55% no valve issues ESOPHAGOGASTRODUODENOSCOPY TRANSORAL DIAGNOSTIC 12/30/2006 EGD LAPAROSCOPIC APPENDECTOMY 09/20/2007 LAPAROSCOPY ENTEROLYSIS SEPARATE PROCEDURE 09/20/2007 RPR 1ST INGUN HRNA AGE 5 YRS/> REDUCIBLE Hernia repair, inguinal LEFT Family History FAMILY HISTORY Problem Relation Age of Onset Diabetes Other no first-degree Coronary Artery Disease Other no first-degree Colon Cancer Other no first-degree Prostate Cancer Other no first-degree other (heart attack [Other]) Father Unsure of age, but above age 50 other (heart attack [Other]) Paternal Grandfather Unsure of age, but above age 50 Cancer Mother Skin - not melanoma but not sure what type Patient Allergies ALLERGIES No Known Allergies Current Medications Current Outpatient Medications on File Prior to Visit Medication Sig omeprazole (PRILOSEC) 20 mg capsule Take 1 capsule by mouth daily before breakfast. 1/2 hr before meal. No current facility-administered medications on file prior to visit. Social History Social History Tobacco Use Smoking status: Current Every Day Smoker Packs/day: 1.00 Years: 15.00 Pack years: 15.00 Types: Cigarettes Smokeless tobacco: Never Used Tobacco comment: nov 2005 Vaping Use Vaping Use: Never used Substance Use Topics Alcohol use: No Drug use: No Review of Symptoms REVIEW OF SYSTEMS PAIN ASSESSMENT: Negative for pain, history of chronic pain, or current treatment for a chronic pain condition. GENERAL: No weight loss, malaise or fevers HEENT: SEE HPI NECK: Negative for lumps, goiter, pain and significant neck swelling RESPIRATORY: Negative for cough, hemoptysis, wheezing, COPD, dyspnea or shortness of breath CARDIOVASCULAR: Negative for chest pain, leg swelling, hypertension, CHF or palpitations GI: No nausea, vomiting, or diarrhea : No history of dysuria, frequency or incontinence MUSCULOSKELETAL: Negative for joint pain or swelling, back pain or muscle pain NEURO: No history of headaches, syncope, paralysis, seizures or tremors EXAM: BP 124/80 Pulse 84 Temp 36.3 C (97.4 F) (Left Tympanic) Resp 14 Ht 180.3 cm (5' 11 ) Wt 72.1 kg (159 lb) BMI 22.18 kg/m General Appearance: Well appearing, alert, in no acute distress, well-hydrated, well nourished.. Head: Normocephalic, no masses, lesions, tenderness or abnormalities. Eyes: Anicteric sclera. Pupils are equally round and reactive to light. Extraocular movements are intact. . Ears: External ears normal, canals clear. Nose/Sinuses: Nares normal, septum midline, mucosa normal, no drainage or sinus tenderness. Oropharynx: Positive findings: dental caries. Cracked tooth of the upper left jaw Neck: Supple, no adenopathy; thyroid symmetric, normal size, Lungs: Lungs clear to auscultation. No wheezing, rhonchi, rales.. Heart: RRR without murmur, gallop, or rubs. No ectopy. Abdomen: Normal abdominal exam, Abdomen soft, non-tender. Bowel sounds normal. No masses, organomegaly. Health Maintenance List COVID-19 VACCINE(1) Never done INFLUENZA(Season Ended) due on 06/07/2022 DTAP,TDAP,TD(7 - Td or Tdap) due on 03/27/2023 LIPID SCREEN due on 05/17/2026 ONE PNEUMOVAX PRIOR TO AGE 65 Completed HEPATITIS C SCREENING Completed HIV SCREENING Completed MENINGOCOCCAL CONJUGATE Aged Out ASSESSMENT/PLAN: 1. Wellness examination - ICD9: V70.0, ICD10: Z00.00 (primary diagnosis) - Counseled on healthy diet and regular exercise - Patient was counseled [id number] by myself (the billing provider) for the following immunizations and vaccine components, including side effects: COVID-19. Refused - Follow up for annual exam in one year 2. Fatigue, unspecified type - ICD9: 780.79, ICD10: R53.83 - Check labs - TESTOSTERONE, FREE AND TOTAL - TSH BLD - COMP METABOLIC PANEL - CBC + DIFF - VITAMIN D 25 HYDROXY - VITAMIN B12 BLOOD 3. ED (erectile dysfunction) of organic origin - ICD9: 607.84, ICD10: N52.9 - Check labs. Discussed getting testosterone in the am. Quit smoking. Can discuss starting Viagra if continued problems despite smoking cessation and normal testosterone. - TESTOSTERONE, FREE AND TOTAL - URINALYSIS, WITH MICROSCOPIC 4. Smoking - ICD9: 305.1, ICD10: F17.200 - Cessation encouraged. - Physiologic and physical aspects of tobacco addiction as well as strategies for quitting were discussed. - Counseling was given focusing on the harmful effects of this addiction especially given the patient's medical condition(s) which will be worsened because of the chemicals in tobacco. - Counseling was given 3-4 minutes. - Prescription for Chantix given - VARENICLINE 1 MG TABLET - VARENICLINE 1 MG TABLET 5. Pain, dental - ICD9: 525.9, ICD10: K08.89 - Continue with follow up with dentist. - AMOXICILLIN 875 MG-POTASSIUM CLAVULANATE 125 MG TABLET Fox Kern APRN.CNP RTO in 3 months, sooner if needed. This note was partly generated using [employer] voice recognition dictation and may contain some misspelled or inaccurate words missed on review. documented in this encounter [facility] 01-05-2022 Instructions Fox Kern APRN.CNP - 01/05/2022 12:12 PM EDT 1. Get blood work, but do in the morning before 830 am at the latest for your testosterone levels. 2. Get your COVID vaccine at your local pharmacy to protect yourself and others in your community. 3. Continue to work on smoking cessation. Start Chantix 4. Augmentin sent to pharmacy for tooth. Fox Kern APRN.CNP documented in this encounter [facility] 12-29-2021 Miscellaneous Notes Please see pt's message. Jihan Olivera LPN documented in this encounter [facility] documented as of this encounter (statuses as of 12/29/2021) [facility] History of Past illness Narrative* Problem Noted Date Resolved Date Acute appendicitis without mention of peritoniti s 09/23/2007 03/20/2010 Unspecified intestinal obstruction 09/23/2007 03/20/2010 Esophagitis, unspecified 12/30/2006 010 Acute gastritis without mention of hemorrhage 03/20/2010 Esophageal reflux 04/23/2006 03/20/2010 documented as of this encounter (statuses as of 01/05/2022) [facility] History of Past illness Narrative* Problem Noted Date Resolved Date Acute appendicitis without mention of peritoniti s 09/23/2007 03/20/2010 Unspecified intestinal obstruction 09/23/2007 03/20/2010 Esophagitis, unspecified 12/30/2006 010 Acute gastritis without mention of hemorrhage 03/20/2010 Esophageal reflux 04/23/2006 03/20/2010 documented as of this encounter (statuses as of 11/21/2022) [facility] Diagnosis Wellness examination- Primary Fatigue, unspecified type ED (erectile dysfunction) of organic origin Impotence of organic origin Smoking Tobacco use disorder Pain, dental Unspecified disorder of the teeth and supporting structures [facility] Diagnosis Acute cough- Primary SOB (shortness of breath) Shortness of breath Wheezing Rib pain on left side Chest pain, unspecified documented in this encounter [facility])* Diagnostic Procedure Only (Routine) - Closed Specialty Diagnoses / Procedures Referred By Gunnar rowe Referred To Contact XR IMAGING Diagnoses Rib pain on left side Wheezing Procedures XR RIBS 2V AP/OBL LEFT RADEX RIBS UNILATERAL 2 VIEWS Lisa Kim APRN.WAREHOUSE TECHNICIAN [address] [place] [address] Xr Imaging Referral ID Status Reason Start Date Expiration Date V isits Requested Visits Authorized [id number] Closed Auto-Generate d Referral 11/21/2022 12/21/2023 1 1 * Medication Prior Authorization - Closed Specialty Diagnoses / Procedures Referred By Contyahir t Referred To Contact Diagnoses Wheezing Lisa Kim APRN.CNP [address] [place] [address] Referral ID Status Reason Start Date Expiration Date Visits Re quested Visits Authorized [id number] Closed 1 1 [facility] Summary Purpose Family History No Family History Records Found Advance Directives No Advanced Directives Records Found Additional Source Comments Source Comments (unrecognize d section and content) In the event this informatio n is protected by the Federal Confidentiality of Alcohol and Drug Abuse Patient Records regulations: The Federal rules restrict any use of the information to criminally investigate or prosecute any alcohol or drug abuse patient.[facility] the event this information is protected by the Federal Confidentiality of Alcohol and Drug Abuse Patient Records regulations: The Federal rules restrict any use of the information to criminally investigate or prosecute any alcohol or drug abuse patient.[facility] the event this information is protected by the Federal Confidentiality of Alcohol and Drug Abuse Patient Records regulations: The Federal rules restrict any use of the information to criminally investigate or prosecute any alcohol or drug abuse patient.[facility] Care Teams (unrecognized sec tion and content) Fancy Stitcher Relationship Specialty Start Date End Date Aisha Baires MD [address] [place] [address] PCP - General Family Practice 06/04/14 Fancy Stitcher Relationship Specialty Start Date End Date Aisha Baires MD [address] [place] [address] PCP - General Family Medicine 06/04/14 Reason for Visit (unrecogniz ed section and content) Reason Comments Cough & Congestion x3 week s with productive cough. Left side ribs painful from coughing. (unrecognized sect ion and content) No Status Records Found INFORMATION SOURCE (unrecogn ized section and content) FOR RECORDS PERTAINING TO PATIENTS WHO ARE OR HAVE BEEN ENROLLED IN A CHEMICAL DEPENDENCY/SUBSTANCEABUSE PROGRAM, SOME INFORMATION MAY BE OMITTED. This clinical summary was aggregated from multiple sources. Caution should be exercised in using it in the provision of clinical care. This summary normalizes information from multiple sources, and as a consequence, information in this document may materially change the coding, format and clinical context of patient data. In addition, data may be omitted in some cases. CLINICAL DECISIONS SHOULD BE BASED ON THE PRIMARY CLINICAL RECORDS. [facility] [employer] provides no warranty or guarantee of the accuracy or completeness of information in this document.
[2023-10-11 11:39] VITALS: BP 117/85; PULSE 73; RESP 16; O2SAT 96
== END 2023-10-11 11:40 | disposition home or self-care (01) ==
PROVIDERS: Emergency Provider Emergency Medicine; PCP Family Medicine; Visit Provider Emergency Medicine
DX: R42 Dizziness and giddiness (principal); F41.9 Anxiety disorder, unspecified; F17.210 Nicotine dependence, cigarettes, uncomplicated
CPT/HCPCS: 80048; 85025; 93005; 99284; A4216

== ENCOUNTER 2025-01-28 08:20 | Emergency (ER) | payer OTHER, SELFPAY ==
[2025-01-28 08:20] VITALS: BP 122/92; PULSE 119; PULSE 123; RESP 16; TEMP 36.1; O2SAT 98; BMI 23.5
--- NOTE | 2025-01-28 08:31 | RAD_ITS ---
PROCEDURE: CHEST PA AND LATERAL 01/28/2025 REASON FOR EXAM: CHEST PAIN TECHNIQUE: Frontal and lateral views of the chest. COMPARISON: None. FINDINGS: The lungs are expanded. There is no demonstrated parenchymal abnormality. There is no demonstrated pleural abnormality. Normal heart and pericardium. Normal mediastinum and ramiro. Normal visualized pulmonary arteries. Normal visualized aortic arch and descending thoracic aorta. Normal visualized thoracic spine. Normal visualized ribs, clavicles, and shoulders. There is no demonstrated abnormality of the visualized soft tissue structures of the upper abdomen. RAD/Chest PA and Lateral IMPRESSION: No radiographic evidence of an acute abnormality. Reading [facility]
--- NOTE | 2025-01-28 08:33 | EX.ED.DYSGE1 ---
HPI History of Present Illness Chief Complaint: Chest Pain Narrative Narrative: Patient is a 40-year-old male past medical history anxiety, GERD who presents to the emergency department chief complaint chest pain. Patient states the last few days he has had chest pain off and on he states that a few nights ago he noted that he had chest discomfort and thought that this was indigestion. He states that he took an antiacid and his symptoms eventually went away. He states that his pain is constant and does not radiate anywhere. Patient states that he does smoke but denies any recent travel history denies any history of blood clots. Patient states that he drinks about every other day. Patient denies any drug use. PFSH PFSH Home Medications ?Medication ?Instructions ?Recorded ?Last Taken ?Type esomeprazole magnesium 40 mg 40 mg PO DAILY 02/04/17 Unknown History capsule,delayed release (Nexium) cholecalciferol (vitamin D3) 25 1,000 unit PO DAILY 03/05/18 Unknown History mcg (1,000 unit) chewable tablet (Vitamin D3) hydrocodone-acetaminophen 5-325mg 1 tab PO Q4H PRN PRN Pain 2 days 03/05/18 Unknown Rx 5mg-325mg ##10 naproxen 500 mg tablet 500 mg PO BID #14 tabs 03/05/18 Unknown Rx Allergy/AdvReac Type Severity Reaction Status Date / Time No Known Allergies Allergy Verified 01/28/25 08:21 Surgical History History of appendectomy Social History household members: spouse Smoking Status: Current every day smoker tobacco type: cigarettes ROS ROS ED ROS Narrative Constitutional: Denies fevers, chills, headaches Eyes: Denies change in vision double vision blurry vision Cardiovascular: Complains of chest pain as noted above denies palpitations Respiratory: Denies coughing wheezing shortness of breath Abdomen: Denies abdominal pain nausea vomit diarrhea : Denies urinary symptoms Neurological: Denies numbness, weakness, tingling Skin: Denies rashes or lesions EXAM Physical Exam Narrative Exam Narrative: General: Patient lying in bed rest comfortably did not appear to be in acute distress Head: Atraumatic, normocephalic Eyes: PERRL bilaterally, EOMI bilaterally, no conjunctival injection noted Neck: Soft, supple, trachea midline Cardiovascular: Patient tachycardic with a regular rhythm no murmurs gallops rubs noted Respiratory: Clear to auscultation bilaterally Abdomen: Soft, nondistended, nontender to palpation Extremities: +5/5 strength noted in the bilateral upper and lower extremities, radial pulses +2/4 in the bilateral extremities Neurological: Patient follow commands knew that he was at [facility] year is 2024 Skin: Warm, dry, intact no rashes or lesions noted Const Vital Signs: 01/28/25 08:20 01/28/25 08:20 01/28/25 08:31 Temperature 96.9 F L Temperature Source Temporal Pulse Rate 119 H 123 H Respiratory Rate 16 Blood Pressure 122/92 H Blood Pressure Mean 102 Pulse Ox 98 Oxygen Delivery Method Room Air Room Air MDM MDM MDM Narrative Medical decision making narrative: Patient is a 40-year-old male who presented to the emerged part with a chief complaint of chest pain. On the differential diagnosis includes but not limited to ACS, pneumonia, pneumothorax, GERD. Once workup is obtained and reviewed he will be reevaluated. Patient was given 325 mg aspirin as well as IV fluids. HEART Score for Major Cardiac Events from [email or web address] on 01/28/2025 All calculations should be rechecked by clinician prior to use RESULT SUMMARY: 3 points Low Score (0-3 points) Risk of MACE of 0.9-1.7%. INPUTS: History ?> 1 = Moderately suspicious EKG ?> 1 = Non-specific repolarization disturbance Age ?> 0 = <45 Risk factors ?> 1 = 1-2 risk factors Initial troponin ?> 0 = <=ormal limit Patient CBC reviewed and showed no evidence leukocytosis white blood count normal at 8.2, hemoglobin 17.3, plate count normal at 278. Patient sodium was 130, potassium normal at 4, creatinine normal at 0.96. Patient AST and ALT were 52 and 93 respectively. Patient troponin was less than 6 with a delta troponin of less than 6. Patient's EKG reviewed and showed sinus tachycardia with a rate of 111 bpm with a [place] interval of [address] changes likely secondary to rate dependence. Patient's lipase was noted to be 33. Patient's chest x-ray reviewed by myself and by radiology which showed no acute cardiopulmonary processes. Given the patient's workup thus far largely unremarkable did add on a D-dimer given his tachycardia which was normal at 0.27. On reevaluation the patient is feeling much better he and like to go home at this point in time. Patient was advised to follow-up with his primary care physician in the outpatient setting and obtain stress testing in the outpatient setting. At this point in time I have low suspicion for cardiac etiology given his symptoms been going on for the last few days nothing makes his symptoms better or worse and his heart score is low risk at 3. In the meantime he was advised to return with worsening symptoms or any concerns. He is agreeable this plan all question concerns answered he was discharged home in stable condition. Lab Data Labs: Laboratory Results - last 24 hr 01/28/25 01/28/25 08:30 10:35 WBC 8.2 RBC 5.55 Hgb 17.3 H Hct 50.5 MCV 91.0 MCH 31.2 MCHC 34.3 RDW Std Deviation 41.1 RDW Coeff of Melanie 12.5 Plt Count 278 MPV 9.8 Immature Gran % (Auto) 0.500 Neut % (Auto) 57.0 Lymph % (Auto) 30.9 [place] % (Auto) 9.6 Eos % (Auto) 1.3 Baso % (Auto) 0.7 Absolute Neuts (auto) 4.6 Absolute Lymphs (auto) 2.52 Nucleated RBC % 0 D-Dimer Quant (PE/DVT) 0.27 Sodium 138 Potassium 4.0 Chloride 101 Carbon Dioxide 25.4 Anion Gap 12 BUN 10 Creatinine 0.96 Estim Creat Clear Calc 106.76 Est GFR (MDRD) Non-Af 102 BUN/Creatinine Ratio 10.0 Glucose 111 H Calcium 9.7 Total Bilirubin 0.61 Direct Bilirubin 0.24 AST 52 H ALT 93 H Alkaline Phosphatase 89 Troponin T High Sens < 6 Troponin T Hi Sens 2 Hr < 6 Total Protein 7.4 Albumin 4.4 Globulin 3.0 Lipase 33 Radiography Diagnostic Testing: Clinical Impression(s) from Imaging Studies Chest X-Ray 01/28/25 08:31 IMPRESSION: No radiographic evidence of an acute abnormality. Reading Location: [place] [address] Discharge Plan Triage Chief Complaint: Chest Pain ED Provider: Tam Benton Dx/Rx/DC Orders Clinical Impression: Chest pain Prescriptions: No Action esomeprazole magnesium [Nexium] 40 MG capsule 40 mg PO DAILY cholecalciferol (vitamin D3) [Vitamin D3] 1,000 UNIT tablet,chewable 1,000 unit PO DAILY hydrocodone-acetaminophen 1 TABLET tablet 1 tab PO Q4H PRN PRN (Reason: Pain) 2 Days Qty: 10 0RF naproxen 500 MG tablet 500 mg PO BID Qty: 14 0RF Primary Care Provider: Saud Brunson Referrals: Saud Brunson MD [Primary Care Provider] - Activity Restrictions/Additional Instructions: Follow-up with your doctor in the outpatient setting. Return with worsening symptoms or any concerns. Have stress testing obtained in the outpatient setting with your primary care physician. Print Language: Japanese Disposition Disposition: Home, Self Care
[2025-01-28] MEDS: 0.9% Normal Saline (1000mL) 1,000 ML 999 ML IV (08:38)
[2025-01-28] MEDS: Aspirin 81 MG TAB.CHEW 324 MG PO (08:38)
[2025-01-28 08:42] LABS: Absolute Lymphocyte Count 2.52 X10^3/uL (0.83-4.51); Absolute Neutrophil Count 4.6 X10^3/uL (2.0-7.7); Basophil# 0.06 X10^3/uL; Basophil% 0.7 % (0-1); Eosinophil# 0.11 X10^3/uL; Eosinophils% 1.3 % (0-5); Hematocrit 50.5 % (40-54); Hemoglobin 17.3 g/dL (13.0-16.5); Lymphocyte # 2.52 X10^3/ul (0.83-4.51); Lymphocyte % 30.9 % (19-41); Mean Corp Hgb Conc 34.3 g/dL (32-36); Mean Corpuscular Hgb 31.2 pg (27.0-32.0); Mean Platelet Vol. 9.8 fl (6.2-12.0); Monocyte# 0.78 X10^3/uL; Monocyte% 9.6 % (0-10); NRBC Flagged by Analyzer 0 % (0-5); Neutrophil # 4.64 X10^3/uL (2.7-7.7); Platelet Count 278 K/mm3 (150-450); RBC Distribution Width CV 12.5 % (11.6-14.6); RBC Distribution Width SD 41.1 fl (35.1-43.9); Red Blood Count 5.55 M/mm3 (4.6-6.2); White Blood Count 8.2 K/mm3 (4.4-11.0)
[2025-01-28 09:20] LABS: AST(SGOT) 52 U/L (<=37); Alanine Aminotransfer ALT/SGPT 93 U/L (<=46); Albumin, Serum 4.4 g/dL (3.5-5.0); Alkaline Phosphatase 89 U/L (40-129); Anion Gap 12 (5-15); BUN 10 mg/dL (4-19); Bilirubin, Direct 0.24 mg/dL (0.00-0.30); Calcium,Total 9.7 mg/dL (7.6-11.0); Carbon Dioxide 25.4 mmol/L (21.0-32.0); Chloride 101 mmol/L (98-108); Creatinine, Serum 0.96 mg/dL (0.70-1.20); EST Glomerular Filtration Rate 102 (>60); Estimated Creatinine Clearance 106.76 ml/min (50-250); Glucose 111 mg/dL (70-99); Lipase 33 U/L (13-75); Protein, Total 7.4 g/dL (5.9-8.4); Sodium Level 138 mmol/L (133-145); Total Bilirubin 0.61 mg/dL (0.00-1.30); Troponin T High Sensitivity < 6 ng/L (<=22)
[2025-01-28 10:43] LABS: D-Dimer Quantitative (DVT/PE) 0.27 FEU/ug/m (0.27-0.49)
[2025-01-28 11:00] VITALS: BP 116/88; PULSE 80; RESP 16; O2SAT 98
[2025-01-28 11:00] LABS: Troponin T High Sens 2 HR < 6 ng/L (<=22)
[2025-01-28 11:54] VITALS: BP 117/74; PULSE 79; RESP 18; TEMP 36.6; O2SAT 99
== END 2025-01-28 11:55 | disposition home or self-care (01) ==
PROVIDERS: Emergency Provider Emergency Medicine; PCP Family Medicine; Visit Provider Emergency Medicine
DX: R07.89 Other chest pain (principal); R00.0 Tachycardia, unspecified; F41.9 Anxiety disorder, unspecified; K21.9 Gastro-esophageal reflux disease without esophagitis; F17.210 Nicotine dependence, cigarettes, uncomplicated
CPT/HCPCS: 36415; 71046; 80048; 80076; 83690; 84484; 85025; 85379; 93005; 96360; 96361; 99284; A4216